=== PATIENT | female | born 1950 | race Caucasian/White ===

== ENCOUNTER 2018-02-15 15:20 | Observation (INO) | payer MEDICARE ==
--- NOTE | 2018-02-15 16:36 | ED ---
Weakness HPI - General Chief complaint: Weakness Stated complaint: Dr Veronica Time Seen by Provider: 02/15/18 15:54 Source: patient, RN notes reviewed Mode of arrival: wheelchair Limitations: no limitations - History of Present Illness Initial comments: This is a 67-year-old female who presents to the emergency department with chief complaint of weakness. Patient was sent to the emergency department by her neurologist, Dr. Owens. Patient has a history of multiple sclerosis. Over the past 6 weeks she has had difficulty ambulating. Dr. Owens believes that this is an exacerbation of patient's MS. He requested that patient come to the emergency department for admission for a neurological consult and a brain MRI. Patient denies any pain, states that she just has difficulty moving her legs and ambulating. She denies any chest pain or shortness of breath, fevers or chills, abdominal pain, nausea or vomiting, numbness or tingling, dizziness or headache. Patient does state that she has a history of atrial fibrillation and takes Coumadin. She states that she saw her primary care provider, Dr. Perez yesterday and was told to hold off taking her Coumadin as her INR was out of therapeutic range. - Related Data Home Medications Medication Instructions Recorded Confirmed Aspirin EC [Ecotrin Low Dose] 81 mg PO HS 02/15/18 02/15/18 Metoprolol Tartrate [Lopressor] 50 mg PO HS 02/15/18 02/15/18 Allergies Allergy/AdvReac Type Severity Reaction Status Date / Time No Known Allergies Allergy Verified 02/15/18 15:39 Review of Systems ROS Statement: Those systems with pertinent positive or pertinent negative responses have been documented in the HPI. ROS Other: All systems not noted in ROS Statement are negative. Past Medical History Past Medical History: Atrial Fibrillation, CVA/TIA, Hypertension Additional Past Medical History / Comment(s): MS History of Any Multi-Drug Resistant Organisms: None Reported Additional Past Surgical History / Comment(s): Left hip replacement Past Psychological History: No Psychological Hx Reported Smoking Status: Never smoker Past Alcohol Use History: None Reported Past Drug Use History: None Reported General Exam - General Exam Comments Initial Comments: General: Awake and alert, well-developed; in no apparent distress. Morbidly obese female sitting comfortably on ED stretcher with at bedside. HEENT: Head atraumatic, normocephalic. Pupils are equal, round and reactive to light. Extraocular movements intact. Oropharynx moist without erythema or exudate. Neck: Supple. Normal ROM. Cardiovascular: Irregularly irregular rhythm. No murmurs, rubs or gallops. Chest symmetrical. Respiratory: Lungs clear to auscultation bilaterally. No wheezes, rales or rhonchi. Normal respiratory effort with no use of accessory muscles. Abdomen: Soft, non-tender, non-distended. No rigidity, rebound or guarding. Normal bowel sounds in all 4 quadrants. Musculoskeletal: Normal range of motion of bilateral upper and lower extremities. Decreased strength of left lower extremity as compared to the right , however patient states this is baseline. Skin: Thor, warm and dry. Chronic hyperpigmentation noted to bilateral lower extremities. 3+ pedal pitting edema bilaterally. Neurological: Alert and oriented x3. CN II-XII grossly intact. Speech is fluent and answers are appropriate. Psychiatric: Normal mood and affect. No overt signs of depression or anxiety noted. Limitations: no limitations Course Vital Signs 02/15/18 02/15/18 02/15/18 15:26 17:46 18:41 Temperature 98.4 F 98.3 F Pulse Rate 101 H 99 Respiratory 20 22 Rate Blood Pressure 151/82 152/89 O2 Sat by Pulse 98 97 Oximetry EKG Findings - EKG Comments: EKG Findings:: 16:03:36. Atrial fibrillation. ST abnormality, possible digitalis effect. Ventricular rate 83 bpm, QRS duration 98, QT/QTC 382/448. Medical Decision Making - Medical Decision Making This is a 67-year-old female with history of multiple sclerosis who presents to the emergency department for weakness. She was sent to the emergency department by Dr. Owens, her neurologist. Patient has had difficulty ambulating for the past [address] Owens believes this is related to an MS exacerbation. He wanted patient admitted for a neurological consult and brain MRI. Patient's vital signs have been stable. EKG did reveal atrial fibrillation, however patient does have a history of this and is currently taking Coumadin. She has been off of the Coumadin for the past couple of days as her INR has been high. Currently, it is at 3.1. CBC and CMP are essentially unremarkable. Patient will be admitted to Dr. Musa with consult to Dr. Shuayto. Brain MRI ordered. Patient started on Solu-Medrol. Patient is in agreement. She is in no acute distress. - Lab Data Result diagrams: 02/15/18 16:28 02/15/18 16:28 Lab Results 02/15/18 02/15/18 02/15/18 Range/Units 16:28 16:28 16:28 WBC 8.1 (3.8-10.6) k/uL RBC 5.06 (3.80-5.40) m/uL Hgb 15.2 (11.4-16.0) gm/dL Hct 45.6 (34.0-46.0) % MCV 90.2 (80.0-100.0) fL MCH 30.0 (25.0-35.0) pg MCHC 33.2 (31.0-37.0) g/dL RDW 13.6 (11.5-15.5) % Plt Count 251 (150-450) k/uL Neutrophils % 71 % Lymphocytes % 22 % Monocytes % 4 % Eosinophils % 1 % Basophils % 0 % Neutrophils # 5.7 (1.3-7.7) k/uL Lymphocytes # 1.8 (1.0-4.8) k/uL Monocytes # 0.3 (0-1.0) k/uL Eosinophils # 0.1 (0-0.7) k/uL Basophils # 0.0 (0-0.2) k/uL PT 27.5 H (9.0-12.0) sec INR 3.1 H (<1.2) APTT 28.3 (22.0-30.0) sec Sodium 141 (137-145) mmol/L Potassium 4.2 (3.5-5.1) mmol/L Chloride 109 H (98-107) mmol/L Carbon Dioxide 23 (22-30) mmol/L Anion Gap 9 mmol/L BUN 12 (7-17) mg/dL Creatinine 0.70 (0.52-1.04) mg/dL Est GFR (CKD-EPI)AfAm >90 (>60 ml/min/1.73 sqM) Est GFR (CKD-EPI)NonAf 89 (>60 ml/min/1.73 sqM) Glucose 102 H (74-99) mg/dL Calcium 9.7 (8.4-10.2) mg/dL Total Bilirubin 1.0 (0.2-1.3) mg/dL AST 19 (14-36) U/L ALT 26 (9-52) U/L Alkaline Phosphatase 128 H (38-126) U/L Total Protein 7.6 (6.3-8.2) g/dL Albumin 4.2 (3.5-5.0) g/dL Disposition Clinical Impression: Multiple sclerosis, Weakness Disposition: ADMITTED IP TO THIS HOSP Condition: Fair Is patient prescribed a controlled substance at d/c from ED?: No Time of Disposition: 17:33
[2018-02-15 17:00] LABS: Basophils % (A) 0 %; Eosinophils # (A) 0.1 k/uL (0-0.7); Eosinophils % (A) 1 %; HCT 45.6 % (34.0-46.0); HGB 15.2 gm/dL (11.4-16.0); Lymphocytes # (A) 1.8 k/uL (1.0-4.8); Lymphocytes % (A) 22 %; MCHC 33.2 g/dL (31.0-37.0); MCV 90.2 fL (80.0-100.0); Mean Platelet Volume 7.5; Monocytes # (A) 0.3 k/uL (0-1.0); Monocytes % (A) 4 %; Neutrophils # (A) 5.7 k/uL (1.3-7.7); Neutrophils % (A) 71 %; Platelet Count 251 k/uL (150-450); RBC 5.06 m/uL (3.80-5.40); RDW 13.6 % (11.5-15.5); WBC 8.1 k/uL (3.8-10.6)
[2018-02-15 17:02] LABS: ALT 26 U/L (9-52); AST 19 U/L (14-36); Albumin 4.2 g/dL (3.5-5.0); Blood Urea Nitrogen 12 mg/dL (7-17); Calcium 9.7 mg/dL (8.4-10.2); Carbon Dioxide 23 mmol/L (22-30); Glucose 102 mg/dL (74-99); Potassium 4.2 mmol/L (3.5-5.1); Total Protein 7.6 g/dL (6.3-8.2)
[2018-02-15 17:04] LABS: Alkaline Phosphatase 128 U/L (38-126); Anion Gap 9 mmol/L; Chloride 109 mmol/L (98-107); Sodium 141 mmol/L (137-145)
[2018-02-15 17:26] LABS: INR 3.1 (<1.2); Partial Thromboplastin Time 28.3 sec (22.0-30.0); Prothrombin Time 27.5 sec (9.0-12.0)
[2018-02-15] MEDS ORDERED: HYDROcodone/APAP 5-325MG 1 EACH TAB PO PRN (17:33)
[2018-02-15] MEDS ORDERED: NALOXONE 0.4 MG/ML 1 ML VIAL IV PRN (17:33)
[2018-02-15] MEDS ORDERED: ACETAMINOPHEN TAB 325 MG TAB PO PRN (17:33)
[2018-02-15] MEDS ORDERED: methylPREDNISolone SOD SUCCI 125 MG/2 ML VIAL IV SCH (18:00)
[2018-02-15] MEDS: SODIUM CHLORIDE 0.9% 1,000 ML IV SCH (19:57)
[2018-02-15] MEDS: methylPREDNISolone SOD SUCCI 250 MG in SODIUM CHLORIDE 0.9% 100 ML IVPB SCH ×2 (19:58→23:53)
[2018-02-15] MEDS: METOPROLOL TARTRATE 50 MG TAB PO SCH (20:17)
[2018-02-15] MEDS: ASPIRIN 81 MG PO SCH (20:59)
--- NOTE | 2018-02-15 23:05 | HP ---
HISTORY AND PHYSICAL CHIEF COMPLAINT: A 67-year-old white female with history of multiple sclerosis, atrial fibrillation, on Coumadin, presents with a direct admission from Dr. Salmon's office for MS exacerbation with weakness of bilateral legs, unable to ambulate. She sees Dr. Owens as an outpatient for MS. He wanted a brain MRI and a neurologic consult. Denies any vomiting, fevers, chills, shortness of breath. She has a chronic history atrial fibrillation on Coumadin. Her INR was 3.1 on admission. HOME MEDICATIONS: Include: 1. Aspirin 81 mg daily. 2. Metoprolol 50 mg daily. ALLERGIES: No known drug allergies. REVIEW OF SYSTEMS: Fourteen-point review of systems negative except for mentioned in HPI. PAST MEDICAL HISTORY: Atrial fibrillation, CVA, TIA, hypertension. SOCIAL HISTORY: Never smoking. No alcohol. No illicit drugs. PHYSICAL EXAMINATION: Alert, oriented x3. HEAD: Normocephalic, atraumatic. HEART: Irregular regular rhythm. Lungs show clear. Abdomen is soft. MUSCULOSKELETAL: Decreased range of motion of the legs. ENDOCRINE: BMI is over 40. Temp 98.4, pulse rate 99-101, respiratory rate 20-22, blood pressure 150s/80s, O2 97%-98% on room air. EKG shows atrial fibrillation. ASSESSMENT: 1. Acute multiple sclerosis exacerbation. MRI is ordered. 2. Atrial fibrillation on Coumadin. PLAN: Continue with Coumadin. Continue with Solu-Medrol, high dose as ordered by Dr. Ca. Continue home medications. Follow up in next 24 hours. MMODL / IJN: [id number] /
[2018-02-15 23:35] LABS: Appearance,Urine Cloudy (Clear); Bacteria,Urine Moderate /hpf; Bilirubin,Urine Negative (Negative); Blood,Urine Small (Negative); Color,Urine Yellow; Glucose,Urine (UA) Negative (Negative); Ketones,Urine Negative (Negative); Leukocyte Esterase,Urine Moderate (Negative); Mucus,Urine Rare /hpf; Nitrite,Urine Positive (Negative); PH, Urine 5.5 (5.0-8.0); Protein,Urine Negative (Negative); RBC,Urine 6 /hpf (0-5); Specific Gravity,Urine 1.009 (1.001-1.035); Squamous Epithelial Cell,Urine 1 /hpf (0-4); Urobilinogen,Urine <2.0 mg/dL (<2.0); WBC,Urine 9 /hpf (0-5)
[2018-02-16] MEDS: cefTRIAXone IN SWFI 1,000 MG/10 ML SYRINGE IVP SCH (08:46)
[2018-02-16] MEDS: methylPREDNISolone SOD SUCCI 250 MG in SODIUM CHLORIDE 0.9% 100 ML IVPB SCH ×2 (08:46→15:32)
[2018-02-16] MEDS: SODIUM CHLORIDE 0.9% 1,000 ML IV SCH (08:49)
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
--- NOTE | 2018-02-16 18:19 | MR ---
EXAMINATION TYPE: MR brain wow/ con DATE OF EXAM: 02/16/2018 COMPARISON: None HISTORY: HX of MS, weakness, Unsteady Plain Dealing, [id number] TECHNIQUE: Multiplanar, multisequence images of the brain and brainstem is performed without and with IV contras t, utilizing 15 mL intravenous Gadavist . FINDINGS: Diffusion weighted images demonstrate no evidence of a recent infarct or other diffusion ab normality. There is mild to moderate generalized degenerative change. Craniocervical junction mainta ined. Sella turcica has a normal appearance. White matter: There are confluent areas of abnormal signal surrounding the white matter of the lateral ventricles. There are approximately 35 areas of focal abnormal signal within the white matter scattered bilateral ly. There appears to be abnormal signal involving the posterior genuine corpus callosum. Corpus callo sum does appear to be somewhat thin morphology. No enhancing lesions. There are lesions perpendicular to the ventricular system. There also appears to be a area of abnormal signal involving the right cerebellar peduncle. Midline structures demonstrate normal morphology. The craniocervical junction appears within normal limits. Post contrast images demonstrate no abnormal enhancement. The dural venous sinuses appear p atent. Changes of chronic sinusitis noted. IMPRESSION: 1. Diffuse areas of abnormal white matter signal is scattered bilaterally with additional involvement of the right cerebellar peduncle. Findings are nonspecific but most suggestive of a demyelinating pr ocess. MS in the differential diagnosis. Other etiologies including remote ischemia, Lyme' s disease, sarcoidosis, vasculitis, also within the differential diagnosis.
--- NOTE | 2018-02-16 19:00 | PN ---
PROGRESS NOTE SUBJECTIVE: This is a 67-year-old with multiple sclerosis flare, UTI, and Rocephin 1 gram IV has been ordered. Multiple sclerosis is being treated with IV Solu-Medrol 250 q.6 hours. CARDIOVASCULAR: S1, S2. LUNGS: Clear. GI: Soft. MUSCULOSKELETAL: Generalized weakness. ASSESSMENT: 1. Urinary tract infection. 2. Multiple sclerosis flare. Continue with IV Rocephin, IV Solu-Medrol. PT/OT. Possible discharge home in the next 2 days if she improves her strength. MMODL / IJN: [id number] /
[2018-02-16 20:47] LABS: Glucose,Whole Blood 224 mg/dL (75-99)
[2018-02-16] MEDS: METOPROLOL TARTRATE 50 MG TAB PO SCH (21:05)
[2018-02-16] MEDS: ASPIRIN 81 MG PO SCH (21:05)
[2018-02-16] MEDS: INSULIN ASPART 100 UNIT/ML 1 ML 10 ML VIAL SQ SCH (21:09)
[2018-02-17] MEDS: methylPREDNISolone SOD SUCCI 250 MG in SODIUM CHLORIDE 0.9% 100 ML IVPB SCH ×3 (00:37→15:04)
[2018-02-17 07:03] LABS: Glucose,Whole Blood 150 mg/dL (75-99)
[2018-02-17] MEDS: INSULIN ASPART 100 UNIT/ML 1 ML 10 ML VIAL SQ SCH ×2 (07:46→12:45)
[2018-02-17] MEDS: cefTRIAXone IN SWFI 1,000 MG/10 ML SYRINGE IVP SCH (07:46)
[2018-02-17 08:19] LABS: INR 2.1 (<1.2)
[2018-02-17 11:55] LABS: Glucose,Whole Blood 152 mg/dL (75-99)
[2018-02-17 15:00] VITALS: BP 141/80; PULSE 83; RESP 18; TEMP 97.4
--- NOTE | 2018-02-17 16:32 | P.PN ---
Subjective Progress Note Date: 02/17/18 Patient is a pleasant 67-year-old female who is being followed by the neurology service for multiple sclerosis. Patient was diagnosed with multiple sclerosis approximately 15 years ago and states she was on Betaseron for approximately 5 years. Patient has not been on disease modifying agent for approximately the past 10 years. Patient states she stopped taking it due to her neurologist moving away and she never followed up to find a new neurologist. Patient reports feeling increased fatigue, lower extremity weakness, and numbness of upper and lower extremities. Patient was seen by Dr. Owens in the office on 02/15/2018 and was sent to [facility] for MS exacerbation. Patient also has history of atrial fibrillation and is on Coumadin in the home setting. Patient has been receiving IV steroids since admission and states she is doing much better. Physical therapy and occupational therapy have evaluated the patient. At the time of my evaluation, patient sitting up at the bedside and appears to be in no acute distress. Objective - Vital Signs Vital signs: Vital Signs Temp 97.4 F L 02/17/18 14:35 Pulse 83 02/17/18 14:35 Resp 18 02/17/18 14:35 BP 141/80 02/17/18 14:35 Pulse Ox 94 L 02/17/18 14:35 Intake & Output 02/16/18 02/17/18 02/17/18 18:59 06:59 18:59 Intake Total 640 900 Balance 640 900 Intake: Oral 640 900 Other: Voiding Method Toilet Toilet # Voids 1 1 1 - Exam PHYSICAL EXAM: GENERAL APPEARANCE: Patient is an obese, female who appears to be in no acute distress. HEENT: Normocephalic, atraumatic, no facial asymmetry is seen. Neck is supple with no masses felt. CARDIOVASCULAR: Regular rate and rhythm. ABDOMEN: Nontender, nondistended. EXTREMITIES: Show no edema or clubbing. NEUROLOGICAL EXAM: Patient is awake, alert, and oriented 3. Speech and language are normal. Strength is 5 minus/5 in bilateral lower extremities and 5 /5 in bilateral upper extremities. Sensory deficit noted to distal lower extremities. No facial asymmetry is seen on cranial nerve testing. No tremors or seizure-like activity noted. - Labs CBC & Chem 7: 02/15/18 16:28 02/15/18 16:28 Labs: Abnormal Lab Results - Last 24 Hours (Table) 02/16/18 02/17/18 02/17/18 Range/Units 20:37 06:58 07:21 PT 19.0 H (9.0-12.0) sec INR 2.1 H (<1.2) POC Glucose (mg/dL) 224 H 150 H (75-99) mg/dL 02/17/18 Range/Units 11:52 PT (9.0-12.0) sec INR (<1.2) POC Glucose (mg/dL) 152 H (75-99) mg/dL Microbiology - Last 24 Hours (Table) 02/16/18 14:48 Urine Culture - Preliminary Urine,Clean Catch Assessment and Plan Plan: Impression: 1. Exacerbation of multiple sclerosis 2. History of atrial fibrillation on Coumadin 3. Lower extremity weakness 4. Hypertension 5. Urinary tract infection Recommendations: It does appear patient is experiencing exacerbation of multiple sclerosis. MRI of the brain shows diffuse areas of abnormal white matter signal which is scattered bilaterally with additional involvement of the right cerebellar peduncle. There are approximately 35 areas of focal abnormal signal within the white matter bilaterally. There are no enhancing lesions. I recommend continuing IV Solu-Medrol 250 mg every 8 hours. I recommend Accu- Cheks with sliding scale coverage. Patient requesting to go home. If patient is to be discharged, she can complete IV steroids in my office. She will complete IV steroids in the office tomorrow morning and then be given an oral taper for the next 12 days. I recommend she follow up with neurology to discuss medication options for multiple sclerosis. Continue medical treatment for urinary tract infection. Continue medical management for hypertension and atrial fibrillation. Patient is stable from a neurological standpoint for discharge. Feel free to call with any questions or concerns. I performed an examination of the patient and discussed the management with the [employer] SUPERINTENDENT. I have reviewed the [employer] SUPERINTENDENT notes and agree with the findings and plan of care.
== END 2018-02-17 16:15 | disposition home or self-care (01) ==
LOC: EC 15:20 → 4MS4W 17:29
PROVIDERS: ADMIT Family Medicine; ATTEND Family Medicine
DX: G35 Multiple sclerosis (principal); N39.0 Urinary tract infection, site not specified; I48.91 Unspecified atrial fibrillation; I10 Essential (primary) hypertension; E66.01 Morbid (severe) obesity due to excess calories; Z68.43 Body mass index [BMI] 50.0-59.9, adult; R60.9 Edema, unspecified; L81.9 Disorder of pigmentation, unspecified; Z79.82 Long term (current) use of aspirin; Z79.01 Long term (current) use of anticoagulants; Z79.899 Other long term (current) drug therapy; Z86.73 Personal history of transient ischemic attack (TIA), and cerebral infarction without residual deficits; Z96.642 Presence of left artificial hip joint; Z96.1 Presence of intraocular lens; Z98.42 Cataract extraction status, left eye; Z98.41 Cataract extraction status, right eye; Z80.1 Family history of malignant neoplasm of trachea, bronchus and lung; Z81.2 Family history of tobacco abuse and dependence
CPT/HCPCS: 99285 ×2; 96376; 96365; 96366 ×2; 96375; 36415; 93005; 97162; 97165; 80053; 85025; 85610 ×2; 85730; 81001; 87086; 87077; 87186; 70553; G0378 ×3; J2930 ×3; J0696 ×2; A9581